=== PATIENT | female | born 1985 | race Caucasian/White ===

== ENCOUNTER 2023-05-15 11:43 | Emergency (ER) | payer BC ==
[~2023-05-15] VITALS: Ht 160 cm; Wt 86.4 kg
[2023-05-15 11:44] VITALS: BP 122/81; TEMP 98.9; O2SAT 100
== END 2023-05-15 14:40 | disposition home or self-care (01) ==
LOC: M ED 11:43
DX: S80.862A Insect bite (nonvenomous), left lower leg, initial encounter (principal); W57.XXXA Bitten or stung by nonvenomous insect and other nonvenomous arthropods, initial encounter; Y92.89 Other specified places as the place of occurrence of the external cause; Y93.89 Activity, other specified; Y99.8 Other external cause status